=== PATIENT | female | born 1935 | race Caucasian/White ===

== ENCOUNTER 2017-02-26 13:15 | Inpatient (IN) | payer MEDICARE ==
--- NOTE | ~2017-02-26 | DS ---
Discharge Summary [address] [place]. [address] NAME: RIOS PATE JO : 35 STATUS : DIS IN PAT#: [id number] AGE: 82 ADM/REG DATE : 02/26/17 MR#: [id number] REPORT SERV DATE: 03/05/17 DICTATED BY: THERESE THOMAS DATE: 03/04/17 REPORT STATUS : Draft TRANSCRIBED BY: MODL DATE: 03/04/17 ADMISSION DATE: 02/26/2017 DISCHARGE DATE: 03/04/2017 CONSULTATION: 1. Gastroenterology, Dr. Colby. 2. Oncology Dr. Manuelito Ibarra. PROCEDURE: 1. Endoscopic ultrasound biopsy, performed by Dr. Colby. Impression:. a. Normal esophagus. b. Normal stomach. c. Normal examined duodenum. d. There were no signs of significant pathology in the common bile duct. e. A mass was identified in the pancreatic tail. This was biopsied. f. There was no sign of significant pathology in the ampulla. g. Many malignant appearing lymph nodes were visualized in the fredy- pancreatic region. Tissue has not been obtained. However, the endosonographic appearance is highly suspicious for metastatic undifferentiated carcinoma versus lymphoma. 2. A limited Doppler examination was performed and revealed no significant vascular abnormality. RECOMMENDATIONS: Return patient to hospital vu for ongoing care. Awaiting cytology report. LABORATORY REPORTS DURING THIS ADMISSION: Biopsy report of pancreas reports pancreatic tail mass that shows B-cell lymphoma, favor diffuse large B-cell lymphoma. Flow cytometry, immuno-chemistries, and FISH studies pending. DISCHARGE DIAGNOSES: 1. Diffuse large B cell lymphoma (newly diagnosed). 2. Urinary tract infection. 3. Iron deficiency anemia. 4. Hypothyroidism. 5. History of aortic valve replacement with a 2 mm Wellington-Edward Magna Ease bovine, pericardial bioprosthesis. DISCHARGE CONDITION: Stable. HISTORY OF PRESENT ILLNESS: For detailed HPI, please make reference to Dr. Renzo Marshall's dictation on 02/26/2017. In brief, this is an 82-year-old female with medical history significant for a recent aortic valve replacement surgery, chronic iron deficiency anemia, who presented to the emergency Discharge Summary [address] [place]. [address] NAME: RIOS PATE : 35 STATUS : DIS IN PAT#: [id number] AGE: 82 ADM/REG DATE : 02/26/17 MR#: [id number] REPORT SERV DATE: 03/05/17 DICTATED BY: THERESE THOMAS DATE: 03/04/17 REPORT STATUS : Draft TRANSCRIBED BY: STACIE DATE: 03/04/17 room department with complaints of generalized fatigue and abdominal pain. There was associated nausea, denies vomiting, denies diarrhea. In the ER, the patient was found to have a blood pressure 142/81, temperature was 98.4, pulse was 101 beats per minute saturating 97% on room air. Abdominal examination was significant for periumbilical tenderness. CT of the abdomen was done in the ER that shows soft tissue fullness in the distal pancreatic tail 2 mm in size concerning for an underlying mass, nodule of soft tissue density just below the pancreatic tail measuring 8 x 25 mm which may represent lymphadenopathy. Also noted was a bulky left upper periaortic soft tissue nodularity which may represent lymphadenopathy versus left adrenal mass, also noted was mild right upper periaortic lymphadenopathy. The patient's presentation was concerning for an underlying malignancy. The patient was admitted to the Hospitalist Service for further management. HOSPITAL COURSE: 1. Large B-cell lymphoma. Given the patient's finding of a mass in the pancreatic tail and diffuse bulky intraabdominal lymphadenopathy, Oncology was consulted who recommended a tissue biopsy of the pancreatic mass. Gastroenterology was consulted. The patient underwent endoscopic ultrasound with biopsy of the pancreatic mass tail. Results of biopsy confirmed the presence of diffuse large B-cell lymphoma. Oncology recommended the patient to have a Port-A-Cath placement, bone marrow biopsy, and echo prior to discharge. The patient will have PET scan as an outpatient within one week of discharge. The patient will follow up with Dr. Ibarra as an outpatient for initiation of curative chemo-therapy. 2. Urinary tract infection. The patient also noted to have positive leukocyte esterase. Urine culture grew E. coli, underwood sensitive. The patient was transitioned from IV antibiotics to p.o. antibiotics prior to discharge. At the time of discharge, the patient was advised to complete antibiotics therapy and follow up with primary care physician as an outpatient. 3. History of aortic valve replacement with a prosthetic bovine valve. No evidence of chest pain or shortness of breath during the course of this admission. The patient was advised to continue follow up with home dose of aspirin as well as Coreg. The patient was advised to continue follow up with her primary pull through hooker. DISCHARGE ACTIVITY: As tolerated. DISCHARGE DISPOSITION: Home with family. DISCHARGE FOLLOWUP: 1. The patient to follow up with Dr. Ibarra as an outpatient. 2. The patient to follow up with primary care physician as an outpatient. Greater than 30 minutes was used to prepare this patient's discharge, reconcile medication, and advise the patient on discharge plans and followup. JENI/STACIE Therese Martinez Discharge Summary [address] [address] NAME: RIOS PATE : 35 STATUS : DIS IN PAT#: [id number] AGE: 82 ADM/REG DATE : 02/26/17 MR#: [id number] REPORT SERV DATE: 03/05/17 DICTATED BY: THERESE THOMAS DATE: 03/04/17 REPORT STATUS : Draft TRANSCRIBED BY: STACIE DATE: 03/04/17 MD Kobe / [id number] CC: MD Reginaldo Saravia M.D.
--- NOTE | ~2017-02-26 | OP ---
Record Of Operation [facility] [address] [facility] [place]. [address] NAME: RIOS PATE : 35 STATUS : DIS IN PAT#: [id number] AGE: 82 ADM/REG DATE : 02/26/17 MR#: [id number] REPORT SERV DATE: 03/04/17 DICTATED BY: STEVE LOREDO DATE: 03/04/17 REPORT STATUS : Draft TRANSCRIBED BY: STACIE DATE: 03/04/17 DATE OF PROCEDURE: 03/04/2017 PREOPERATIVE DIAGNOSES: 1. Lymphoma. 2. Phlebosclerosis. POSTOPERATIVE DIAGNOSES: 1. Lymphoma. 2. Phlebosclerosis. OPERATION PERFORMED: Right internal jugular Port-A-Cath placement under ultrasound and fluoroscopic guidance. SURGEON: Steve Loredo M.D. ANESTHESIA: MAC plus local. ESTIMATED BLOOD LOSS: Less than 10 mL. DESCRIPTION OF OPERATION: After appropriate sedation, the patient was prepped and draped in proper sterile fashion. Ultrasound probe was placed over the right neck. She had a patent and pliable right internal jugular vein. We infiltrated the right neck and right chest wall using local anesthesia. The right internal jugular vein was cannulated using a 14-gauge needle under ultrasound guidance. A guidewire was wire was then fed under fluoroscopic guidance just above the right heart. A transverse incision was made at the right chest wall. Subcutaneous tissues were incised down to pectoralis fascia and the pocket was bluntly dissected. Introducer sheath was then placed over the guidewire. A catheter was then fed through the introducer sheath with the tip being just above the right heart. The catheter was then tunneled subcutaneously to the port pocket and secured to the port, the port was to the chest wall using 3-0 Vicryl suture. The port was flushed and aspirated, it flushed and aspirated easily. The skin was closed using interrupted 3-0 Vicryl sutures. Steri-Strips and dressings were then placed. The patient was taken to recovery room in satisfactory condition. KAMALA/STACIE Steve Loredo M.D. / [id number] CC: Therese Bullock MD Record Of Operation [facility] [address] [place]. [address] NAME: RIOS PATE : 35 STATUS : DIS IN PAT#: [id number] AGE: 82 ADM/REG DATE : 02/26/17 MR#: [id number] REPORT SERV DATE: 03/04/17 DICTATED BY: STEVE LOREDO DATE: 03/04/17 REPORT STATUS : Draft TRANSCRIBED BY: MODL DATE: 03/04/17 Reginaldo Schmitt M.D.
--- NOTE | ~2017-02-26 | EGD ---
EGD REPORT [facility] [address] [place]. [address] NAME: ANAI PATE : 35 STATUS : ADM IN PAT#: [id number] AGE: 82 ADM/REG DATE : 02/26/17 MR#: [id number] REPORT SERV DATE: 02/28/17 DICTATED BY: STEVE EDMOND DATE: 02/28/17 REPORT STATUS : Draft [facility]: [facility] DATE: 02/28/17 Endoscopy Center Patient Name: Anai Pate Date of : 1935 Attending MD: STEVE EDMOND MD Procedure Date No Time: 02/28/2017 Procedure: Upper EUS Indications: Suspected solid pancreatic neoplasm Referring MD: CORINA SEPULVEDA MD Medicines: Monitored Anesthesia Care Complications: No immediate complications. Estimated blood loss: Minimal. Procedure: Pre-Anesthesia Assessment: - ASA Grade Assessment: II - A patient with mild systemic disease. After obtaining informed consent, the endoscope was passed under direct vision. Throughout the procedure, the patient's blood pressure, pulse, and oxygen saturations were monitored continuously. The Endoscope was introduced through the mouth, and advanced to the second part of duodenum. The Endoscope was introduced through the mouth, and advanced to the antrum of the stomach. The upper EUS was accomplished without difficulty. The patient tolerated the procedure well. Findings: Endoscopic Finding : The examined esophagus was endoscopically normal. The entire examined stomach was endoscopically normal. The examined duodenum was endoscopically normal. Endosonographic Finding : There was no sign of significant endosonographic abnormality in the common bile duct. An unremarkable gallbladder, no stones, no biliary sludge and ducts of normal caliber were identified. A round mass was identified in the pancreatic tail. The mass was hypoechoic. The mass measured 35 mm by 25 mm in maximal cross-sectional diameter. The outer margins were irregular. Fine needle aspiration was performed. Color Doppler imaging was utilized prior to needle puncture to confirm a lack of significant vascular structures within the needle path. Ten passes were made with the 22 gauge needle using a transgastric approach. Some passes were made with a stylet. A still photographer was present and performed a preliminary cytologic examination. The cellularity of the specimen was adequate. Final cytology results are pending. Estimated blood loss was minimal. There was no sign of significant endosonographic abnormality in the EGD REPORT [place] [id number] [facility] [place]. [address] NAME: ANAI PATE : 35 STATUS : ADM IN [facility]#: [id number] AGE: 82 ADM/REG DATE : 02/26/17 MR#: [id number] REPORT SERV DATE: 02/28/17 DICTATED BY: STEVE EDMOND DATE: 02/28/17 REPORT STATUS : Draft TRANSCRIBED BY: [facility] DATE: 02/28/17 ampulla. No masses were identified. Many malignant-appearing lymph nodes were visualized in the peripancreatic region. The largest measured 13 mm by 13 mm in maximal cross-sectional diameter. The nodes were round, hypoechoic and homogenous and had well defined margins. A limited doppler examination was performed and revealed no significant vascular abnormalities. Impression: - Normal esophagus. - Normal stomach. - Normal examined duodenum. - There was no sign of significant pathology in the common bile duct. - A mass was identified in the pancreatic tail. This was biopsied and results are pending. - There was no sign of significant pathology in the ampulla. - Many malignant-appearing lymph nodes were visualized in the peripancreatic region. Tissue has not been obtained. However, the endosonographic appearance is highly suspicious for metastatic undifferentiated carcinoma vs lymphoma. - A limited doppler examination was performed and revealed no significant vascular abnormalities. Recommendation: - Return patient to hospital vu for ongoing care. - Await cytology results. Procedure Code(s): --- Professional --- 38011, Esophagogastroduodenoscopy, flexible, transoral; with transendoscopic ultrasound-guided intramural or transmural fine needle aspiration/biopsy(s), (includes endoscopic ultrasound examination limited to the esophagus, stomach or duodenum, and adjacent structures) Diagnosis Code(s): --- Professional --- K86.8, Other specified diseases of pancreas I89.9, Noninfective disorder of lymphatic vessels and lymph nodes, unspecified CPT copyright 2013 [employer]. All rights reserved. The codes documented in this report are preliminary and upon remote inpatient coder review may be revised to meet current compliance requirements. Steve Edmond MD EGD REPORT [facility] [address] [place]. [address] NAME: ANAI PATE : 35 STATUS : ADM IN PAT#: [id number] AGE: 82 ADM/REG DATE : 02/26/17 MR#: [id number] REPORT SERV DATE: 02/28/17 DICTATED BY: STEVE EDMOND DATE: 02/28/17 REPORT STATUS : Draft TRANSCRIBED BY: [employer] DATE: 02/28/17 STEVE EDMOND MD 02/28/2017 12:04 PM This report has been signed electronically. Number of Addenda: 0 Note Initiated On: 02/28/2017 10:13 AM [facility] [place] [address]
--- NOTE | ~2017-02-26 | CN ---
Consultation Report [place] [address] [place]. [address] NAME: RIOS PATE : 35 STATUS : ADM IN PAT#: [id number] AGE: 82 ADM/REG DATE : 02/26/17 MR#: [id number] REPORT SERV DATE: 02/27/17 DICTATED BY: STEVE EDMOND DATE: 02/27/17 REPORT STATUS : Draft TRANSCRIBED BY: MODL DATE: 02/27/17 INPATIENT CONSULTATION DATE OF CONSULTATION: 02/27/2017 REASON FOR CONSULTATION: Pancreatic mass. HISTORY OF PRESENT ILLNESS: Mrs. Pate is a very pleasant 82-year-old female with no significant past medical history, who presented to the emergency department with complaints of joint pain, fatigue, and abdominal pain. The patient had normal laboratory evaluation in the emergency department with no significant abnormalities noted, aside from mild anemia. However, on imaging, the patient was noted to have scattered lymphadenopathy in her upper abdomen as well as a discrete mass in the tail of her pancreas, measuring approximately 25 x 18 mm. Bulky lymphadenopathy was seen in the left periaortic region, measuring 38 x 29 mm. There is also lymphadenopathy in the right periaortic area, measuring 7 x 15 mm. No other significant abnormalities were noted. The patient has no family history of GI-related malignancies including pancreatic cancer, although she did have a brother with leukemia. The patient states that she started having problems with nauseousness more than a week ago and recently has been having problems with left upper abdominal discomfort with radiation down towards her pelvis. No significant weight loss that she is aware of. REVIEW OF SYSTEMS: All systems were reviewed and were negative, aside from what was mentioned in the history of present illness. No fevers or chills. No vomiting. No change in bowel habits. PAST MEDICAL HISTORY: Includes: 1. Aortic valve replacement. 2. Chronic iron deficiency anemia. 3. Hypothyroidism. 4. Macular degeneration. FAMILY HISTORY: No family history of GI-related malignancies. The patient has a brother who had leukemia. SOCIAL HISTORY: The patient does not smoke cigarettes, does not drink, and does not use illicit substances. ALLERGIES: THE PATIENT HAS AN ALLERGY TO: 1. PENICILLIN. 2. LEVAQUIN. MEDICATIONS: Current outpatient medications include: Consultation Report [place] [address] [place]. [address] NAME: RIOS PATE : 35 STATUS : ADM IN PAT#: [id number] AGE: 82 ADM/REG DATE : 02/26/17 MR#: [id number] REPORT SERV DATE: 02/27/17 DICTATED BY: STEVE EDMOND DATE: 02/27/17 REPORT STATUS : Draft TRANSCRIBED BY: MODMayra DATE: 02/27/17 1. Aspirin. 2. Vitamin D. 3. Artificial tears. 4. Lasix. 5. Levothyroxine. 6. Evista. 7. PreserVision. 8. Iron tablets. PHYSICAL EXAMINATION: VITAL SIGNS: Most recent vital signs include a temperature of 98.7, pulse rate of 105, blood pressure is 171/84, saturating 97% on room air. GENERAL INSPECTION: Reveals an elderly female, lying in bed, in no apparent distress. HEENT: Head is normocephalic and atraumatic with normal inspection of the oral mucosa. Sclerae are nonicteric. Pupils are equal and round on the right side. NECK: Supple without lymphadenopathy. HEART: Rate is regular with normal S1 and S2. RESPIRATORY: Lung sounds clear to auscultation bilaterally. ABDOMEN: Soft with only mild tenderness to palpation in the left upper quadrant and epigastric area. The patient has normoactive bowel sounds. EXTREMITIES: No cyanosis, clubbing, or edema. SKIN: No jaundice or rash. NEUROLOGIC: No gross motor deficits. She is alert and oriented. Mood and affect are appropriate. Judgment appears to be intact. LABORATORY DATA: Most recent laboratory results demonstrated a CBC with a white count of 7.0, a hemoglobin of 11.4, and a platelet count of 538,000. Comprehensive metabolic panel showed no significant abnormalities. A CT of the abdomen and pelvis without contrast was reviewed personally by myself and is as noted in the history of present illness. There is evidence of bulky lymphadenopathy around an area that appears to be a mass within the tail of the pancreas, measuring approximately 2.5 cm in size. ASSESSMENT AND PLAN: Mrs. Pate is a pleasant 82-year-old female with no significant past medical history, who presents with vague abdominal symptoms and was found on imaging to have a pancreatic mass with surrounding lymphadenopathy, highly concerning for malignancy. Differential diagnosis in this case includes: 1. Neuroendocrine tumor. 2. Lymphoma. 3. Pancreatic adenocarcinoma. 4. Pancreatic inflammatory mass. We will proceed with endoscopic ultrasound and fine-needle aspiration biopsy tomorrow. Please keep the patient n.p.o. after midnight, and please hold all anticoagulant Consultation Report [address] [facility] [place]. [address] NAME: RIOS PATE : 35 STATUS : ADM IN PAT#: [id number] AGE: 82 ADM/REG DATE : 02/26/17 MR#: [id number] REPORT SERV DATE: 02/27/17 DICTATED BY: STEVE EDMOND DATE: 02/27/17 REPORT STATUS : Draft TRANSCRIBED BY: STACIE DATE: 02/27/17 medications. Thank you very much for this interesting consult and allowing me to participate in Mrs. Paet's care. Please call with any questions or concerns you may have. [facility]/STACIE Steve Edmond MD / [id number] CC: MD Reginaldo Saravia M.D.
--- NOTE | ~2017-02-26 | HP ---
History And Physical [place] [address] [place]. [address] NAME: RIOS PATE : 35 STATUS : ADM IN [facility]#: [id number] AGE: 82 ADM/REG DATE : 02/26/17 MR#: [id number] REPORT SERV DATE: 02/26/17 DICTATED BY: GAUDENCIO COSME DATE: 02/26/17 REPORT STATUS : Draft TRANSCRIBED BY: MODL DATE: 02/26/17 DATE OF ADMISSION: 02/26/2017 CHIEF COMPLAINT: Joint pain, fatigue, abdominal pain. HISTORY OF PRESENT ILLNESS: The patient is an 82-year-old female. She has a past medical history significant for recent aortic valve replacement approximately one year ago. She has chronic iron deficiency anemia which she sees Dr. Ibarra for. She has hypothyroidism. She has a history of macular degeneration. She presented to the emergency room with above complaints. The patient states she has recently started iron infusions for her anemia. She had treatments on the and the . She was experiencing nausea, generalized abdominal pain, and fatigue after the previous transfusions. She felt they were worse today, so she presented to the emergency department. She underwent a CT scan as part of her evaluation. There was a mass on the pancreatic tail, adrenal, and lymphadenopathy noted. She also had a UTI. She is being admitted for further evaluation and treatment. She states the symptoms do coincide with her initiating the iron therapy. She denies any previous symptoms prior to starting. She denies anorexia, weight loss, abdominal pain prior to above. She seems somewhat surprised that she would have abnormality on her CT as she has really had no symptoms prior to starting the iron. PAST MEDICAL HISTORY: As covered above. PAST SURGICAL HISTORY: She had a heart valve surgery approximately year ago, total hysterectomy, and a fistular repair. CURRENT MEDICATIONS: Artificial tears, aspirin 81, vitamin D 1000, Lasix 20, levothyroxine 50, Evista 60, PreserVision capsules. She also takes some injections from Dr. Balbuena, her clinical data management manager, and the iron. ALLERGIES: PENICILLIN CAUSED A RASH AND LEVAQUIN. FAMILY HISTORY: Both parents are . Her father had a heart attack during surgery. Her mother at 84. SOCIAL HISTORY: She is a nondrinker and nonsmoker. REVIEW OF SYSTEMS: HEENT: Positive for macular degeneration. CARDIOVASCULAR: She does have some fast heart rate when moving around. She attributes that to the low iron. No active chest pain. No active CHF symptoms. PULMONARY: No cough, shortness of breath. GI: As covered in HPI. : Despite her positive urine, she is not currently having any symptoms. NEUROMUSCULOSKELETAL: As covered in HPI. The remainder of 14-point review of systems is negative. History And Physical [address] [address] NAME: RIOS PATE : 35 STATUS : ADM IN PAT#: [id number] AGE: 82 ADM/REG DATE : 02/26/17 MR#: [id number] REPORT SERV DATE: 02/26/17 DICTATED BY: GAUDENCIO COSME DATE: 02/26/17 REPORT STATUS : Draft TRANSCRIBED BY: STACIE DATE: 02/26/17 PHYSICAL EXAMINATION: VITAL SIGNS: BP 142/81, temperature 98.4, pulse 101, respirations 14, sat 97%. GENERAL: She is alert, oriented, in no acute distress. HEENT: Normocephalic, atraumatic. She does have some irritation to her left eye. NECK: Supple. HEART: Tachycardic, regular. LUNGS: Clear to auscultation without rhonchi, rales, or wheezes. ABDOMEN: Shows positive and active bowel sounds. She has some very mild left-sided tenderness. No guarding or rebound. EXTREMITIES: No clubbing, cyanosis, edema. NEUROLOGICAL: Exam is grossly intact. LAB: Sodium 139, potassium 4.1, chloride 106, CO2 of 26, BUN and creatinine 20 and 1.08. LFTs are AST and ALT of 23 and 10, total bilirubin 0.4. White count 7, H and H 11.4 and 36.8, platelets are 538. Urinalysis: Trace ketones, large leukocyte esterase, greater than 182 wbc's, occasional bacteria, 4 epi's. Urine culture is currently pending. Chest x-ray shows no acute cardiopulmonary abnormality. CT shows soft tissue fullness in the distal pancreatic tail 22 mm in size concerning for an underlying mass, nodule of soft tissue density just below the pancreatic tail measuring 18 x 25 which may represent lymphadenopathy, bulky left upper periaortic soft tissue nodularity which may represent lymphadenopathy versus left adrenal mass, also mild right upper periaortic lymphadenopathy, mildly thickened appearance of the descending colon likely due to underdistention or less likely some superimposed colitis, trace fluid in the left paracolic gutter, evidence of previous bowel surgery with right lower quadrant small bowel anastomosis and distal sigmoid anastomosis. No bowel obstruction pattern demonstrated. L1 compression fracture with 70% loss of height, new since September 2008. ASSESSMENT: 1. Above findings with concern of possible pancreatic mass. 2. Urinary tract infection. PLAN: 1. The patient has been admitted. 2. We will treat her UTI. 3. We will consult Dr. Ibarra. 4. We will try and obtain tissue diagnosis. 5. Continue home medications as appropriate. [facility]/STACIE Gaudencio Cosme M.D. / [id number] History And Physical [address] [address] NAME: RIOS PATE : 35 STATUS : ADM IN PAT#: [id number] AGE: 82 ADM/REG DATE : 02/26/17 MR#: [id number] REPORT SERV DATE: 02/26/17 DICTATED BY: GAUDENCIO COSME DATE: 02/26/17 REPORT STATUS : Draft TRANSCRIBED BY: STACIE DATE: 02/26/17 CC: Reginaldo Schmitt M.D.
[2017-02-26 12:22] LABS: ER CBC TAT 0 Hrs 10 Mins; HEMATOCRIT 36.8 % (36.0-48.0); HEMOGLOBIN 11.4 g/dL (12.0-16.0); MEAN CORPUSCULAR HEMOGLOB 25.3 pg (26.0-34.0); MEAN CORPUSCULAR VOLUME 81.6 fL (80-100); RBC DISTRIBUTION WIDTH 20.8 % (12.0-16.0); RED CELL COUNT 4.51 10/6/uL (4.0-5.6)
[2017-02-26 12:23] LABS: MANUAL DIFF YES %; PLATELET COUNT 538 10/3/uL (150-400)
[2017-02-26 12:32] LABS: A/G RATIO 0.8 (0.7-1.9); ALBUMIN 3.2 G/DL (3.5-5.0); ALKALINE PHOSPHATASE 89 U/L (45-117); BUN (BLOOD UREA NITROGEN) 20 MG/DL (6-23); CALCIUM, SERUM 9.2 MG/DL (8.5-10.4); CHLORIDE, SERUM 106 MMOL/L (96-112); CO2 (CARBON DIOXIDE) 26 MMOL/L (24-34); CREATININE 1.08 MG/DL (0.55-1.02); GFR AFRICAN AMERICAN 55 ML/MIN (>=60); GFR NON AFRICAN AMERICAN 48 ML/MIN (>=60); GLOBULIN 4.2 G/DL (2.5-4.1); GLUCOSE, SERUM 96 MG/DL (60-99); POTASSIUM, SERUM 4.1 MMOL/L (3.5-5.3); SGOT(AST) 23 U/L (5-40); SGPT(ALT) 10 U/L (5-65); SODIUM, SERUM 139 MMOL/L (135-148); TOTAL BILIRUBIN 0.4 MG/DL (0-1.2); TOTAL PROTEIN 7.4 G/DL (6.0-8.5)
[2017-02-26 13:00] LABS: ANISOCYTOSIS 1+ (5-10/OIF) (0-5/OIF); BAND NEUTROPHILS 3 %; BASOPHILS 1 %; BASOPHILS ABSOLUTE (CALC) 0.07 10/3/uL (0.0-0.16); ER DIFF TAT 0 Hrs 48 Mins; GIANT PLATELET OCC; IMMATURE GRANS ABSOLUTE (CALC) 0.14 10/3/uL (0.0-0.11); LYMPHOCYTES 14 %; LYMPHOCYTES ABSOLUTE (CALC) 0.98 10/3/uL (0.67-4.30); METAMYELOCYTES 2 %; MONOCYTES 20 %; NEUTROPHILS ABSOLUTE (CALC) 4.41 10/3/uL (2.02-8.40); PLATELET ESTIMATE SLT INC (ADEQUATE); SEGMENTED NEUTROPHIL (0) 60 %; TOTAL NUCLEATED CELLS 100
[2017-02-26 13:07] LABS: ASCORBIC ACID (UR NOT ORDER) 40 (NEG); BILIRUBIN, URINE NEGATIVE (NEG); ER URINALYSIS TAT 0 Hrs 16 Mins; KETONE, URINE TRACE MG/DL (NEG); LEUKOCYTE ESTERASE(NOT OR LARGE (NEG); NITRITE (URINE) NEG (NEG)
[2017-02-26 13:08] LABS: WBC (NOT ORDERED) (RFLEX) > 182 (0-5)
[~2017-02-26 13:15] MED LIST: ADVIL PO; ALPHAGAN P0.1 % OPH; COSOPT OPH; EVISTA60 PO; L20 PO; LEVOTHYROXIN50 MCG PO; MULTIVITAMI1 PO; PREDFORTE OPH; PREDNISOLONE ACETATE OPH; PRESERVISION A1 EAC1 PO; PROMEGA PO; VITAMIN D400 UNI1 PO
[2017-02-26] MEDS ORDERED: VITAMIN D31000 UNIT PO (14:17)
[2017-02-26] MEDS ORDERED: ASAB PO (14:17)
[2017-02-26] MEDS ORDERED: REFRESH OPH SO0.3 ML OPH (14:19)
[2017-02-26] MEDS ORDERED: L20 PO (14:21)
[2017-02-26] MEDS ORDERED: PRESERVISION A1 EACH PO (14:22)
[2017-02-26] MEDS ORDERED: INJECTAFER (14:23)
[2017-02-26] MEDS ORDERED: EVISTA60 PO (14:26)
[2017-02-26] MEDS ORDERED: LEVOTHYROXIN50 MCG PO (14:26)
[2017-02-26 20:05] LABS: PROCALCITONIN 0.08 ng/mL (<0.5)
[2017-02-26 21:39] LABS: TROPONIN I 0.04 NG/ML (<0.05)
[2017-02-28 04:52] LABS: BUN (BLOOD UREA NITROGEN) 18 MG/DL (6-23); CALCIUM, SERUM 8.9 MG/DL (8.5-10.4); CHLORIDE, SERUM 107 MMOL/L (96-112); CREATININE 1.06 MG/DL (0.55-1.02); GFR AFRICAN AMERICAN 57 ML/MIN (>=60); GFR NON AFRICAN AMERICAN 49 ML/MIN (>=60); GLUCOSE, SERUM 98 MG/DL (60-99); POTASSIUM, SERUM 3.6 MMOL/L (3.5-5.3); SODIUM, SERUM 141 MMOL/L (135-148)
[2017-02-28 04:54] LABS: CO2 (CARBON DIOXIDE) 21 MMOL/L (24-34); PHOSPHORUS, SERUM 3.1 MG/DL (2.5-4.5)
[2017-02-28 04:58] LABS: INTERNATIONAL NORMAL RATI 1.3 UNITS (-); PARTIAL THROMBO TIME 25.9 SEC (22.5-37.2); PROTIME (NOT ORD) 15.8 SEC (12.0-14.5)
[2017-02-28 05:18] LABS: HEMATOCRIT 36.9 % (36.0-48.0); HEMOGLOBIN 11.4 g/dL (12.0-16.0); MEAN CORPUS HGB CONC 30.9 g/dL (32.0-36.0); MEAN CORPUSCULAR HEMOGLOB 25.4 pg (26.0-34.0); MEAN CORPUSCULAR VOLUME 82.2 fL (80-100); MEAN PLATELET VOLUME 10.7 fL (9.2-13.0); PLATELET COUNT 458 10/3/uL (150-400); RBC DISTRIBUTION WIDTH 20.5 % (12.0-16.0); RED CELL COUNT 4.49 10/6/uL (4.0-5.6); WHITE BLOOD CELLS 7.8 10/3/uL (4.5-10.5)
[2017-02-28 05:53] LABS: MANUAL DIFF YES %
[2017-02-28 07:00] LABS: BASOPHILS 3 %; BASOPHILS ABSOLUTE (CALC) 0.23 10/3/uL (0.0-0.16); EOSINOPHILS 1 %; EOSINOPHILS ABSOLUTE (CALC) 0.08 10/3/uL (0.0-0.53); IMMATURE GRANS ABSOLUTE (CALC) 0.08 10/3/uL (0.0-0.11); LYMPHOCYTES 25 %; LYMPHOCYTES ABSOLUTE (CALC) 1.95 10/3/uL (0.67-4.30); METAMYELOCYTES 1 %; MONOCYTES 12 %; MONOCYTES ABSOLUTE (CALC) 0.94 10/3/uL (0.21-1.20); NEUTROPHILS ABSOLUTE (CALC) 4.52 10/3/uL (2.02-8.40); PLATELET ESTIMATE SLT INC (ADEQUATE); SEGMENTED NEUTROPHIL (0) 58 %; TOTAL NUCLEATED CELLS 100
[2017-02-28 07:01] LABS: ANISOCYTOSIS 1+ (5-10/OIF) (0-5/OIF); GIANT PLATELET OCC
[2017-03-01 05:26] LABS: BUN (BLOOD UREA NITROGEN) 15 MG/DL (6-23); CALCIUM, SERUM 8.9 MG/DL (8.5-10.4); CHLORIDE, SERUM 103 MMOL/L (96-112); CO2 (CARBON DIOXIDE) 22 MMOL/L (24-34); GFR AFRICAN AMERICAN 69 ML/MIN (>=60); GFR NON AFRICAN AMERICAN 60 ML/MIN (>=60); GLUCOSE, SERUM 76 MG/DL (60-99); POTASSIUM, SERUM 3.4 MMOL/L (3.5-5.3); SODIUM, SERUM 138 MMOL/L (135-148)
[2017-03-01 05:27] LABS: HEMATOCRIT 35.9 % (36.0-48.0); HEMOGLOBIN 10.9 g/dL (12.0-16.0); MEAN CORPUS HGB CONC 30.4 g/dL (32.0-36.0); MEAN CORPUSCULAR HEMOGLOB 24.8 pg (26.0-34.0); MEAN CORPUSCULAR VOLUME 81.6 fL (80-100); MEAN PLATELET VOLUME 11.1 fL (9.2-13.0); PLATELET COUNT 487 10/3/uL (150-400); RBC DISTRIBUTION WIDTH 20.4 % (12.0-16.0)
[2017-03-01 05:28] LABS: MANUAL DIFF YES %
[2017-03-01 07:08] LABS: BAND NEUTROPHILS 8 %; IMMATURE GRANS ABSOLUTE (CALC) 0.28 10/3/uL (0.0-0.11); LYMPHOCYTES 26 %; LYMPHOCYTES ABSOLUTE (CALC) 1.82 10/3/uL (0.67-4.30); METAMYELOCYTES 3 %; MONOCYTES 21 %; MONOCYTES ABSOLUTE (CALC) 1.47 10/3/uL (0.21-1.20); MYELOCYTES 1 %; NEUTROPHILS ABSOLUTE (CALC) 3.43 10/3/uL (2.02-8.40); PLATELET ESTIMATE SLT INC (ADEQUATE); SEGMENTED NEUTROPHIL (0) 41 %; TOTAL NUCLEATED CELLS 100
[2017-03-01 07:09] LABS: GIANT PLATELET FEW
[2017-03-02 04:53] LABS: HEMATOCRIT 34.9 % (36.0-48.0); HEMOGLOBIN 10.6 g/dL (12.0-16.0); MEAN CORPUS HGB CONC 30.4 g/dL (32.0-36.0); MEAN CORPUSCULAR HEMOGLOB 25.2 pg (26.0-34.0); MEAN CORPUSCULAR VOLUME 83.1 fL (80-100); MEAN PLATELET VOLUME 11.3 fL (9.2-13.0); PLATELET COUNT 444 10/3/uL (150-400); RBC DISTRIBUTION WIDTH 20.5 % (12.0-16.0); WHITE BLOOD CELLS 8.1 10/3/uL (4.5-10.5)
[2017-03-02 04:54] LABS: MANUAL DIFF YES %
[2017-03-02 05:05] LABS: BUN (BLOOD UREA NITROGEN) 21 MG/DL (6-23); CALCIUM, SERUM 9.2 MG/DL (8.5-10.4); CHLORIDE, SERUM 105 MMOL/L (96-112); CO2 (CARBON DIOXIDE) 23 MMOL/L (24-34); GFR AFRICAN AMERICAN 54 ML/MIN (>=60); GFR NON AFRICAN AMERICAN 47 ML/MIN (>=60); GLUCOSE, SERUM 95 MG/DL (60-99); POTASSIUM, SERUM 3.9 MMOL/L (3.5-5.3); SODIUM, SERUM 139 MMOL/L (135-148)
[2017-03-02 05:51] LABS: IMMATURE GRANS ABSOLUTE (CALC) 0.24 10/3/uL (0.0-0.11); LYMPHOCYTES 15 %; LYMPHOCYTES ABSOLUTE (CALC) 1.22 10/3/uL (0.67-4.30); METAMYELOCYTES 3 %; MONOCYTES 18 %; MONOCYTES ABSOLUTE (CALC) 1.46 10/3/uL (0.21-1.20); NEUTROPHILS ABSOLUTE (CALC) 5.18 10/3/uL (2.02-8.40); SEGMENTED NEUTROPHIL (0) 64 %; TOTAL NUCLEATED CELLS 100
[2017-03-02 05:52] LABS: GIANT PLATELET MANY; PLATELET ESTIMATE SLT INC (ADEQUATE); RBC MORPHOLOGY ABN (NORMAL)
[2017-03-03 04:12] LABS: HEMATOCRIT 34.1 % (36.0-48.0); HEMOGLOBIN 10.7 g/dL (12.0-16.0); MANUAL DIFF YES %; MEAN CORPUS HGB CONC 31.4 g/dL (32.0-36.0); MEAN CORPUSCULAR VOLUME 82.8 fL (80-100); MEAN PLATELET VOLUME 11.1 fL (9.2-13.0); PLATELET COUNT 447 10/3/uL (150-400); RBC DISTRIBUTION WIDTH 20.7 % (12.0-16.0); RED CELL COUNT 4.12 10/6/uL (4.0-5.6); WHITE BLOOD CELLS 7.9 10/3/uL (4.5-10.5)
[2017-03-03 04:17] LABS: PHOSPHORUS, SERUM 3.4 MG/DL (2.5-4.5)
[2017-03-03 04:25] LABS: BAND NEUTROPHILS 5 %; IMMATURE GRANS ABSOLUTE (CALC) 0.08 10/3/uL (0.0-0.11); LYMPHOCYTES 13 %; LYMPHOCYTES ABSOLUTE (CALC) 1.03 10/3/uL (0.67-4.30); METAMYELOCYTES 1 %; MONOCYTES 33 %; MONOCYTES ABSOLUTE (CALC) 2.61 10/3/uL (0.21-1.20); NEUTROPHILS ABSOLUTE (CALC) 4.19 10/3/uL (2.02-8.40); PLATELET ESTIMATE SLT INC (ADEQUATE); SEGMENTED NEUTROPHIL (0) 48 %; TOTAL NUCLEATED CELLS 100
[2017-03-03 04:26] LABS: RBC MORPHOLOGY ABN (NORMAL)
[2017-03-04 05:05] LABS: BASOPHILS 0.3 %; BASOPHILS ABSOLUTE 0.02 10/3/uL (0.0-0.16); EOSINOPHILS 0.4 %; EOSINOPHILS ABSOLUTE 0.03 10/3/uL (0.0-0.53); HEMATOCRIT 34.3 % (36.0-48.0); HEMOGLOBIN 10.5 g/dL (12.0-16.0); IMMATURE GRANULOCYTES 3.2 %; IMMATURE GRANULOCYTES ABSOLUTE 0.25 10/3/uL (0.0-0.11); LYMPHOCYTES ABSOLUTE 1.34 10/3/uL (0.67-4.30); MEAN CORPUS HGB CONC 30.6 g/dL (32.0-36.0); MEAN CORPUSCULAR HEMOGLOB 25.4 pg (26.0-34.0); MEAN CORPUSCULAR VOLUME 82.9 fL (80-100); MEAN PLATELET VOLUME 11.3 fL (9.2-13.0); MONOCYTES 42.6 %; MONOCYTES ABSOLUTE 3.35 10/3/uL (0.21-1.20); NEUTROPHILS 36.5 %; NEUTROPHILS ABSOLUTE 2.88 10/3/uL (2.02-8.40); PLATELET COUNT 409 10/3/uL (150-400); RED CELL COUNT 4.14 10/6/uL (4.0-5.6); WHITE BLOOD CELLS 7.9 10/3/uL (4.5-10.5)
[2017-03-04 05:16] LABS: MANUAL DIFF NO %
[2017-03-04 05:22] LABS: ALBUMIN 2.7 G/DL (3.5-5.0); CALCIUM, SERUM 9.6 MG/DL (8.5-10.4); CHLORIDE, SERUM 104 MMOL/L (96-112); CO2 (CARBON DIOXIDE) 25 MMOL/L (24-34); CREATININE 1.09 MG/DL (0.55-1.02); GFR AFRICAN AMERICAN 55 ML/MIN (>=60); GFR NON AFRICAN AMERICAN 47 ML/MIN (>=60); GLUCOSE, SERUM 101 MG/DL (60-99); PHOSPHORUS, SERUM 3.5 MG/DL (2.5-4.5); SGOT(AST) 67 U/L (5-40); SGPT(ALT) 43 U/L (5-65); SODIUM, SERUM 141 MMOL/L (135-148); TOTAL BILIRUBIN 0.3 MG/DL (0-1.2); TOTAL PROTEIN 6.8 G/DL (6.0-8.5)
[2017-03-04 05:26] LABS: ALKALINE PHOSPHATASE 108 U/L (45-117); BUN (BLOOD UREA NITROGEN) 28 MG/DL (6-23); DIRECT BILIRUBIN < 0.1 MG/DL (0.0-0.4); INDIRECT BILIRUBIN(NOT ORDER) 0.2 MG/DL (0.1-0.9)
[2017-03-04 05:27] LABS: INTERNATIONAL NORMAL RATI 1.2 UNITS (-); PROTIME (NOT ORD) 15.1 SEC (12.0-14.5)
[2017-03-04 05:28] LABS: PARTIAL THROMBO TIME 25.6 SEC (22.5-37.2)
[2017-03-04 07:41] LABS: BASOPHILS 1 %; BASOPHILS ABSOLUTE (CALC) 0.08 10/3/uL (0.0-0.16); EOSINOPHILS 1 %; EOSINOPHILS ABSOLUTE (CALC) 0.08 10/3/uL (0.0-0.53); LYMPHOCYTES 22 %; LYMPHOCYTES ABSOLUTE (CALC) 1.74 10/3/uL (0.67-4.30); MONOCYTES 28 %; MONOCYTES ABSOLUTE (CALC) 2.21 10/3/uL (0.21-1.20); NEUTROPHILS ABSOLUTE (CALC) 3.79 10/3/uL (2.02-8.40); PLATELET ESTIMATE SLT INC (ADEQUATE); SEGMENTED NEUTROPHIL (0) 48 %; TOTAL NUCLEATED CELLS 100
[2017-03-04 07:42] LABS: HYPOCHROMIA 1+ (3-10/OIF) (0-2/OIF)
[2017-03-04 11:09] LABS: RETICULOCYTE COUNT 1.6 % (0.5-2.9)
[2017-03-04 11:10] LABS: RETICULOCYTE COUNT ABSOLUTE 65.8 10/3/uL (20.2-119.8)
[2017-03-04] MEDS ORDERED: COREG6 PO (16:34)
[2017-03-04] MEDS ORDERED: DSS PO (16:35)
[2017-03-04] MEDS ORDERED: SENTAB PO (16:36)
[2017-03-04] MEDS ORDERED: CEFT2 PO (16:36)
[2017-03-04] MEDS ORDERED: ZOFRAN4 PO (16:37)
[2017-03-04] MEDS ORDERED: PROTONIX PO (16:38)
[2017-03-04] MEDS ORDERED: NORCO1 TA1 PO (16:38)
== END 2017-03-04 17:33 | disposition home or self-care (01) | DRG 840 ==
LOC: ER 13:15 → 5NO 15:43
PROVIDERS: Emergency Medicine; Hospitalist; Internal Medicine; Internal Medicine Gastroenterology; Internal Medicine Hematology & Oncology
PROC: 0FBG4ZX Excision of Pancreas, Percutaneous Endoscopic Approach, Diagnostic (ICD-10-PCS; principal; 2017-02-28 08:30)
PROC: BF47ZZZ Ultrasonography of Pancreas (ICD-10-PCS; 2017-02-28 08:30)
PROC: 05HM33Z Insertion of Infusion Device into Right Internal Jugular Vein, Percutaneous Approach (ICD-10-PCS; 2017-03-04)
PROC: B5131ZA Fluoroscopy of Right Jugular Veins using Low Osmolar Contrast, Guidance (ICD-10-PCS; 2017-03-04)
PROC: 07DR3ZX Extraction of Iliac Bone Marrow, Percutaneous Approach, Diagnostic (ICD-10-PCS; 2017-03-04)
DX: C83.39 Diffuse large B-cell lymphoma, extranodal and solid organ sites (principal); E43 Unspecified severe protein-calorie malnutrition; N39.0 Urinary tract infection, site not specified; I48.0 Paroxysmal atrial fibrillation; Z68.1 Body mass index [BMI] 19.9 or less, adult; E03.9 Hypothyroidism, unspecified; D50.9 Iron deficiency anemia, unspecified; Z95.2 Presence of prosthetic heart valve; B96.20 Unspecified Escherichia coli [E. coli] as the cause of diseases classified elsewhere; Z88.0 Allergy status to penicillin
CPT/HCPCS: 71010; 74176; 77001; 80048; 80053; 80069; 80076; 81001; 82728; 83540; 83550; 83690; 83735; 83880; 84100; 84145; 84484; 85025; 85045; 85610; 85730; 86301; 87040; 87077; 87086; 87186; 88172; 88173; 88185; 88305; 88311; 88313; 88341; 88342; 88344; 88360; 93005; 93306; 96374; 96375; 99285; A9270-GY; C1788; C9113; J1170; J2250; J2370; J2405; J2543; J3010